=== PATIENT | male | born 1965 | race Caucasian/White ===

== ENCOUNTER 2020-03-01 02:29 | Emergency (ER) | payer OTHER, SELFPAY ==
--- NOTE | ~2020-03-01 | XR_ITS ---
EXAMINATION: XR abdomen/kub 1V DATE: 03/01/2020 03:23 INDICATION: Left flank pain. TECHNIQUE: A supine view of the abdomen on 2 radiographs was obtained. COMPARISON: CT abdomen and pelvis 03/01/2020 FINDINGS: There are no dilated loops of bowel. The kidneys are obscured by bowel. There is a 5 mm sto ne in distal left ureter. There are stones in the kidneys measuring up to 6 mm on the left. IMPRESSION: 1. 5 mm stone in distal left ureter. 2. Bilateral kidney stones. Reviewed, dictated and finalized at location [facility].
--- NOTE | ~2020-03-01 | CT_ITS ---
EXAMINATION: CT abdomen pelvis wo con DATE: 03/01/2020 03:20 INDICATION: Left flank pain. TECHNIQUE: Computed tomography (CT) of the abdomen and pelvis was performed without intravenous contr ast. Automated exposure control and iterative reconstruction technique were employed. The dose-length product was 229.17 mGy-cm. COMPARISON: CT abdomen and pelvis 10/20/2015 FINDINGS: The visualized portions of the lung bases demonstrate minimal atelectasis on the left. No p leural effusion. The heart size is normal. No pericardial effusion. The liver, gallbladder, spleen, p ancreas, and adrenal glands are normal. There is a 4 mm stone in right kidney. There are 5 stones in left kidney measuring up to 6 mm. There is an 8 mm hemorrhagic cyst in left kidney. There is a 5 mm s tone in distal left ureter with mild left hydroureter. The prostate is mildly enlarged. There are no dilated loops of bowel. The appendix is normal. There are no pathologically enlarged lymph nodes. The re is no free intraperitoneal fluid. There are surgical clips from vasectomy. There is mild thoracolu mbar spondylosis. IMPRESSION: 1. 5 mm stone in distal left ureter with mild left hydroureter. 2. Bilateral nonobstructing kidney stones. Reviewed, dictated and finalized at location [facility].
--- NOTE | 2020-03-01 02:44 | ED.BACK ---
HPI - Back Pain/Injury General Chief Complaint: Urogenital-Male Stated Complaint: kidney/bladder pain Time Seen by Provider: 03/01/20 02:33 Source: patient Mode of arrival: ambulatory Limitations: no limitations History of Present Illness HPI Narrative: This patient is a 54 year old male with history of kidney stone who presents for evaluation of left flank pain. Patient states he woke up at 1 am with left flank pain. He states he took 1 extra strength tylenol at that time. He is unable to get comfortable due to this pain. He states his pain is starting to migrate to his left lower abdomen. He denies associated nausea or vomiting. He denies fever or chills. His last kidney stone was in 2015 and he was evaluated by Dr. Webb at that time. Related Data Home Medications Medication Instructions Recorded Confirmed doxycycline hyclate 100 mg tablet 100 mg PO DAILY 02/17/20 02/17/20 Allergies Allergy/AdvReac Type Severity Reaction Status Date / Time bee venom protein (honey bee) Allergy Unknown Swelling Verified 03/01/20 04:04 Review of Systems Review of Systems: All systems reviewed & are unremarkable except as noted in HPI and below Constitutional: Constitutional: Denies chills and Denies fever(s) Gastrointestinal: Gastrointestinal: Reports abdominal pain Genitourinary: Genitourinary: Denies hematuria, Denies oliguria, Denies dysuria and Denies urinary frequency Musculoskeletal: Musculoskeletal: Reports back pain [facility] Past Medical History Medical History (Updated 03/01/20 @ 04:13 by Susan Jensen MD) Hiatal hernia Kidney stones Overweight (BMI 25.0-29.9) Screening for colorectal cancer Family History Family History Father Esophageal cancer Mother , Unknown brain condition No problems noted. Social History Social History Smoking status: Never smoker Alcohol intake: current Drinks per week: 6 Gender identity (if verbalized by the patient): Male Exam Const: General: no acute distress and alert Orientation/consciousness: patient oriented x3 HENMT: General nose exam: Normal external nose present Face and sinus: face symmetric Mouth: Yes Normal oral and palatal mucosa present, Yes lip normal, Yes oropharynx normal and Yes moist mucous membranes Throat: posterior oropharynx normal, tonsils normal and uvula midline Eyes: EOM: EOMs intact bilaterally Chest: Chest palpation & inspection: normal inspection of the chest Resp: Effort & Inspection: normal respiratory effort and no retractions Auscultation: clear to auscultation bilaterally Cardio: Rate: regular rate Rhythm: regular rhythm Heart sounds: no murmurs GI: GI Palp: Yes Soft to palpation, No Tenderness to palpation present (GI), No Guarding due to palpation present (GI) and No Rigid due to palpation : General: Yes no CVA tenderness Skin: General skin exam: normal color Rashes: no rashes Neuro: General: patient oriented x3, moves all extremities and CN's II-XI intact bilaterally Course Reevaluation(s) Reevaluation #1: Patient was given flomax. He declined any pain medication or IV meds or fluid. I reviewed CT scan and discharge plan Date: 03/01/20 Time: 04:10 Vital Signs Vital signs: Vital Signs Temperature 98.6 F 03/01/20 02:47 Pulse Rate 59 L 03/01/20 02:47 Respiratory Rate 16 03/01/20 02:47 Blood Pressure 123/79 03/01/20 02:47 Pulse Oximetry 100 03/01/20 02:47 Temperature 98.6 F 03/01/20 02:47 Pulse Rate 59 L 03/01/20 02:47 Respiratory Rate 16 03/01/20 02:47 Blood Pressure 123/79 03/01/20 02:47 Pulse Oximetry 100 03/01/20 02:47 MDM - Back Pain/Injury Lab Data Attestation: I reviewed the patient's lab results. Labs: Lab Results 03/01/20 Range/Units 03:03 Urine Color Yellow (Yellow) Urine Appearance Cloudy H (Clear) Urin
[2020-03-01 02:47] VITALS: BP 123/79; PULSE 59; RESP 16; TEMP 37; O2SAT 100
[2020-03-01 03:30] LABS: Add Urine Microscopic? YES; Appearance Urine Cloudy (Clear); Bacteria Urine Trace /hpf; Bilirubin Urine Negative (Negative); Blood Urine 2+ (Negative); Calcium Oxalate Crystals Urine Present /hpf; Color Urine Yellow (Yellow); Glucose Urine UA Negative (Negative); Ketones Urine Negative (Negative); Leukocyte Esterase Ur Negative LEU/UL (Negative); Mucus Urine Rare /lpf; Nitrate Urine Negative (Negative); Protein Urine Negative (Negative); RBC Urine >75 /hpf (0-2); Specific Grav Ur 1.013 (1.001-1.035); Urobilinogen Urine Negative mg/dL (<2.0)
[2020-03-01] MEDS: TAMSULOSIN HCL 0.4 MG CAPSULE PO (03:58)
[2020-03-01] MEDS: oxyCODONE/ACETAMINOPHEN (*CRX) 5-325 MG TABLET 1 TABLET PO (04:22)
== END 2020-03-01 04:29 | disposition home or self-care (01) ==
PROVIDERS: Emergency Provider General Practice; PCP Family Medicine Sports Medicine
DX: N13.2 Hydronephrosis with renal and ureteral calculous obstruction (principal); E66.3 Overweight; Z68.27 Body mass index [BMI] 27.0-27.9, adult; Z87.442 Personal history of urinary calculi
CPT/HCPCS: 74018; 74176; 81001; 99284; A9270

== ENCOUNTER 2020-04-01 00:50 | Outpatient (CLI) | payer OTHER, SELFPAY ==
[2020-04-01 21:19] LABS: SARS-CoV-2 RNA PCR Negative
== END 2020-04-01 00:51 | disposition home or self-care (01) ==
LOC: ANHCOVIDDT 00:50
PROVIDERS: PCP Family Medicine Sports Medicine; Visit Provider Internal Medicine Gastroenterology
DX: Z01.812 Encounter for preprocedural laboratory examination (principal); Z20.828 Contact with and (suspected) exposure to other viral communicable diseases
CPT/HCPCS: 87635; C9803; U0003

== ENCOUNTER 2020-04-04 00:03 | Day surgery (SDC) | payer OTHER, SELFPAY ==
[2020-03-28 14:34] VITALS: BMI 27.4
--- NOTE | 2020-04-03 12:04 | WPDANESEPPF ---
Anes - Initial Pre Proc Eval Procedure: Operation Date: 04/04/20 09:30 Proposed Procedures p Esophagogastroduodenoscopy & Screening Colonoscopy - Luis M García MD Date/Time: 04/03/20 12:04 Surgeon: Luis M García MD Pre Op Diagnosis: Neoplasm Screening/ Dysphagia Patient Data Age: 54 Gender: M Height: 1.73 m Weight: 81.8 kg Allergies Allergy/AdvReac Type Severity Reaction Status Date / Time bee venom protein (honey bee) Allergy Intermediate Swelling Verified 04/04/20 08:25 Home Medications Medication Instructions Recorded Confirmed Type peg 3350-electrolytes 236 240 ml PO Q10M #4000 ml 02/23/20 Rx gram-22.74 gram-6.74 gram-5.86 gram solution isotretinoin 60 mg PO DAILY 03/28/20 03/28/20 History Patient hx anesthesia problems: none Family hx anesthesia problems: none PMFSH Past Medical History Medical History (Updated 03/02/20 @ 00:00 by Dana Collins) Hiatal hernia Kidney stones Overweight (BMI 25.0-29.9) Screening for colorectal cancer Family History Family History Father Esophageal cancer Mother , Unknown brain condition No problems noted. Social History Social History Smoking status: Never smoker Alcohol intake: current Drinks per week: 7 Substance use: never Substance use type: does not use Living arrangements: with family Gender identity (if verbalized by the patient): Male Spiritual care concerns: No Anes - Eval Final PreProcedure Day of Procedure 04/03/20 12:04 Patient weight: overweight Heart: regular rate and rhythm Lungs: clear to auscultation and normal air movement Airway: Mallampati scale class II Neurological: alert and oriented Last oral intake: >/= 8 hours ASA classification: II Emergent: no Anesthetic plan: proceed Anesthesia type and monitoring: general GIVS and standard monitoring Informed Consent: The patient's anesthetic plan and its attendant risks and benefits were discussed with the patient/family/POA. Questions were solicited and answers provided to the satisfaction of the patient/family/POA.
[2020-04-04 08:26] VITALS: BP 105/82; PULSE 98; RESP 16; TEMP 36.6; O2SAT 100; BMI 27.8
[2020-04-04] MEDS: LACTATED RINGERS 1,000 ML 150 ML IV CONT (08:39)
--- NOTE | 2020-04-04 09:32 | PM.HPGS ---
History of Present Illness History of Present Illness Consent: Risks, benefits, and alternatives have been discussed and questions answered. Patient agrees to proceed with procedure. Chief complaint: Neoplasm Screening/ Dysphagia Narrative: Dereje Mallory is a 54 year old male with dysphagia to solids, never had egd. Also screening colonoscopy Review of Systems Constitutional: Constitutional: Denies headache(s) and Denies weakness Eyes: Eyes: Denies blurry vision ENT: Reports Normal hearing present, Denies headache(s) and Denies neck pain Cardiovascular: Cardiovascular: Denies chest pain and Denies dyspnea Respiratory: Respiratory: Denies dyspnea Gastrointestinal: Gastrointestinal: Reports no additional gastrointestinal complaints Genitourinary: Genitourinary: Denies dysuria Musculoskeletal: Musculoskeletal: Denies neck pain Integumentary/Breasts: Skin/Breast: Denies dry skin Neurologic: Reports Normal hearing present, Denies headache(s) and Denies weakness Psychiatric: Psychiatric: Denies anxiety Endocrine: Endocrine: Denies change in body appearance Hematologic/Lymphatic: Hematologic/Lymphatic: Denies easy bleeding Allergic/Immunologic: Allergic/Immunologic: Denies urticaria [facility] Past Medical History Medical History (Updated 04/04/20 @ 09:33 by Luis M García MD) Dysphagia Hiatal hernia Kidney stones Overweight (BMI 25.0-29.9) Screening for colorectal cancer Family History Family History Father Esophageal cancer Mother , Unknown brain condition No problems noted. Social History Social History Smoking status: Never smoker Alcohol intake: current Drinks per week: 7 Substance use: never Substance use type: does not use Living arrangements: with family Gender identity (if verbalized by the patient): Male Spiritual care concerns: No Meds Home Medications and Allergies Home Medications Medication Instructions Recorded Confirmed Type peg 3350-electrolytes 236 240 ml PO Q10M #4000 ml 02/23/20 Rx gram-22.74 gram-6.74 gram-5.86 gram solution isotretinoin 60 mg PO DAILY 03/28/20 03/28/20 History Allergies Allergy/AdvReac Type Severity Reaction Status Date / Time bee venom protein (honey bee) Allergy Intermediate Swelling Verified 04/04/20 08:25 Vital Signs Vital Signs - 24 hr 04/04/20 08:26 Temperature 97.9 F Pulse Rate 98 Respiratory Rate 16 Blood Pressure 105/82 Pulse Oximetry 100 Exam Const: General: comfortable and no acute distress HENMT: General nose exam: Normal nares present Eyes: General: appearance normal, both eyes and all related structures Neck: Neck: no JVD Resp: Auscultation: clear to auscultation bilaterally Cardio: Rate: regular rate Rhythm: regular rhythm GI: Inspection: non-distended GI Palp: Yes Soft to palpation Skin: General skin exam: normal color Neuro: General: gait normal Speech: normal speech Extrem: General: normal to inspection Psych: Mental Status: mental status grossly normal Assessment and Plan Assessment and plan (1) Dysphagia: Code(s): R13.10 - Dysphagia, unspecified Status: Acute Assessment and Plan: egd with bx (2) Screening for colorectal cancer: Code(s): Z12.11 - Encounter for screening for malignant neoplasm of colon; Z12.12 - Encounter for screening for malignant neoplasm of rectum Status: Acute Assessment and Plan: will proceed with colonoscopy
[2020-04-04] MEDS: BENZOCAINE (*SP) 60 ML SPRAY CAN (HURRICAINE) 1 SPRAY MUCOUS MEM (09:39)
[2020-04-04 10:09] VITALS: BP 97/66; PULSE 86; RESP 18; O2SAT 99
[2020-04-04 10:19] VITALS: BP 105/60; PULSE 88; RESP 20; O2SAT 99
[2020-04-04 10:29] VITALS: BP 104/66; PULSE 66; RESP 20; O2SAT 100
== END 2020-04-04 10:48 | disposition home or self-care (01) ==
PROVIDERS: PCP Family Medicine Sports Medicine; Visit Provider Internal Medicine Gastroenterology
PROC: 0DJ08ZZ Inspection of Upper Intestinal Tract, Via Natural or Artificial Opening Endoscopic (ICD-10-PCS; CPT 43235; principal; 2020-04-04 09:30)
DX: Z12.11 Encounter for screening for malignant neoplasm of colon (principal); K64.8 Other hemorrhoids; K22.2 Esophageal obstruction; K21.00 Gastro-esophageal reflux disease with esophagitis, without bleeding; K29.70 Gastritis, unspecified, without bleeding
CPT/HCPCS: 45378; 43239; 43249; 87635; 88305; C1726; C9803; J2001; J2704; J7120; U0003

== ENCOUNTER → 2021-03-23 15:30 | Outpatient (CLI) | payer OTHER, SELFPAY ==
--- NOTE | ~2021-03-23 | XR_ITS ---
XR abdomen/kub 1V DATE: 03/23/2021 15:48 INDICATION: Ureteral calculus TECHNIQUE: AP projection, 2 views COMPARISON: 03/01/2021 KUB FINDINGS: 2 small calcifications overlying the mid and lower aspect of the left kidney consistent wit h left nephrolithiasis. No calcification overlying either ureter is evident. Calcification at the lef t pelvis on 03/01/2022 is no longer present. No visceromegaly is detected. The psoas shadows are intact. There is no evidence of bowel obstruction . IMPRESSION: Left nonobstructive nephrolithiasis Reviewed, dictated and finalized at [facility]. Reviewed, dictated and finalized at location A.
== END ==
PROVIDERS: Visit Provider Urology
DX: N20.0 Calculus of kidney (principal)
CPT/HCPCS: 74018